=== PATIENT | male | born 1935 | race Caucasian/White ===

== ENCOUNTER 2017-09-17 12:27 | Emergency (ER) | payer OTHER ==
[~2017-09-17 12:27] MED LIST: ASPIRIN CHILDRE81 MG PO; BYSTOLIC10 MG PO; NITROQUICK0.3 MG SL; SIMVASTATIN40 MG PO; SINEMET 25-1001 TAB PO
[2017-09-17] MEDS ORDERED: TAMSULOSIN HCL0.4 M1 PO (12:44)
[2017-09-17] MEDS ORDERED: FLUDROCORTISON0.1 M1 PO (12:44)
[2017-09-17] MEDS ORDERED: AMANTADINE100 M2 PO (12:45)
[2017-09-17] MEDS ORDERED: CARBIDOPA-LEVO1 EAC7 PO (12:45)
[2017-09-17] MEDS ORDERED: SIMVASTATIN40 M1 PO (12:45)
[2017-09-17] MEDS ORDERED: ESCITALOPRAM OX20 MG PO (12:46)
[2017-09-17] MEDS ORDERED: ASPIRIN81 M4 PO (12:47)
[2017-09-17] MEDS ORDERED: MELATONIN3 M4 PO (12:48)
--- NOTE | 2017-09-17 13:42 | ED GI/GU/ABDOMINAL COMPLAINT ---
History of Present Illness General Chief Complaint: General Adult Stated Complaint: CONSTIPATION Source: patient, family, old records Exam Limitations: no limitations Vital Signs & Intake/Output Vital Signs & Intake/Output Vital Signs Date Time Temp Pulse Resp B/P B/P Pulse O2 O2 Flow FiO2 Mean Ox Delivery Rate 09/17 1407 98.3 80 18 161/91 98 Room Air 09/17 1243 97.0 77 28 127/93 96 Room Air Allergies Coded Allergies: NO KNOWN ALLERGIES (10/31/13) Triage Note: PER PT NO BM X 4 DAYS ALSO CO DIFF BREATHING WHEN TRYING TO GO TO [place] SOB IN TRIAGE HX OF PARKINSONS AMBULATION DIFFICULT Triage Nurses Notes Reviewed? yes Onset: 3-4 days Duration: day(s):, constant, continues in ED Timing: recent history Quality/Severity: fullness, moderate Location: generalized abdomen Radiation: no radiation Activities at Onset: rest Prior Abdominal Problems: similar symptoms Past Sexual History: Unobtainable at this time No Modifying Factors: none Associated Symptoms: abdominal pain HPI: 4 days prior to admission patient complains of the last time he moved to stool. He has tried stool softeners without effect. He reports chronic issues with daily passage of stool. He denies fever chills nausea vomiting diarrhea abdominal pain chest pain shortness of breath headache dysuria rash bleeding. (Chuck GOMEZ,Jeovany) Reconcile Medications Amantadine HCl (Amantadine) 100 MG TABLET 1 TAB PO BID UNK (Reported) Aspirin (Aspirin*) 81 MG TAB.CHEW 1 TAB PO DAILY HEART (Reported) Aspirin (Children's Aspirin) 81 MG TAB.CHEW 1 TAB PO DAILY HEART HEALTH Carbidopa/Levodopa (Sinemet) 25 MG/100 MG TAB 1 TAB PO TID PARKINSONS ( Reported) Carbidopa/Levodopa (Carbidopa-Levodopa 25-100 Tab) 25 MG-100 MG TABLET 1 TAB PO TID PARKINSONS (Reported) Escitalopram Oxalate 20 MG TABLET 1 TAB PO DAILY ANXIETY (Reported) Fludrocortisone Acetate 0.1 MG TABLET 1 TAB PO DAILY UNK (Reported) Melatonin 3 MG TABLET 1 TAB PO QPM SLEEP (Reported) Nitroglycerin (Nitroquick) 0.3 MG TAB 1 TAB SL Q6 PRN CHEST PAIN Polyethylene Glycol 3350 (Miralax) 17 GRAM/DOSE POWDER 17 GM PO DAILY constipation mix with water, juice, soda, coffee or tea use until stools soft and regular Simvastatin 40 MG TABLET 1 TAB PO QPM CHOLESTEROL (Reported) Simvastatin (Simvastatin*) 40 MG TABLET 1 TAB PO QPM CHOL (Reported) Tamsulosin HCl 0.4 MG CAP.ER.24H 1 CAP PO DAILY URINE (Reported) (Barbara GOMEZ,Christiano Carranza) Past History Travel History Traveled to [place] past 21 day No Medical History Any Pertinent Medical History? see below for history Neurological: Parkinson's disease EENT: NONE Cardiovascular: HEART CHOL Respiratory: NONE Gastrointestinal: NONE Hepatic: NONE Renal: NONE Musculoskeletal: NONE Psychiatric: NONE Endocrine: NONE History of MRSA: No History of VRE: No History of CDIFF: No Pneumonia Vaccine: 04/08/04 Influenza Vaccine: 01/26/12 Surgical History Surgical History: non-contributory Psychosocial History Who do you live with Spouse Services at Home None What is your primary language Spanish Tobacco Use: Never used Family History Family History, If Any: MOTHER FH: pancreatic cancer FATHER FH: brain tumor Hx Contributory? No (Jeovany Woods MD) Review of Systems Review of Systems Constitutional: Reports: no symptoms. EENTM: Reports: no symptoms. Respiratory: Reports: no symptoms. Cardiovascular: Reports: no symptoms. GI: Reports: see HPI, constipation. Genitourinary: Reports: no symptoms. Musculoskeletal: Reports: no symptoms. Skin: Reports: no symptoms. Neurological/Psychological: Reports: no symptoms. Hematologic/Endocrine: Reports: no symptoms. Immunologic/Allergic: Reports: no symptoms. All Other Systems: Reviewed and Negative (Jeovany Woods MD) Physical Exam Physical Exam General Appearance: well developed/nourished, alert, awake, anxious, mild distress Head: atraumatic, normal appearance Eyes: Bilateral: normal appearance, PERRL, EOMI. Ears, Nose, Throat, Mouth: hearing grossly normal, moist mucous membrane Neck: normal inspection, supple, full range of motion, normal alignment Respiratory: normal breath sounds, chest non-tender, no respiratory distress, quiet respiration, lungs clear Cardiovascular: regular rate/rhythm, normal peripheral pulses, norml femoral pulses equa Peripheral Pulses: 4+ carotid (R), 4+ carotid (L) Gastrointestinal: normal bowel sounds, soft, non-tender, no organomegaly Male Genitals: normal genitalia Back: normal inspection, normal range of motion Extremities: normal range of motion, no ligament instability Neurologic/Psych: no motor/sensory deficits, awake, alert, oriented x 3, normal mood/affect, glass washer and carrier II-XII nml as tested Skin: intact, normal color, warm/dry Core Measures ACS in differential dx? No Sepsis Present: No Sepsis Focused Exam Completed? No (Jeovany Woods MD) Progress Differential Diagnosis: bowel obstruction, pancreatitis, PUD/GERD Diagnostic Imaging: Viewed by Me: Radiology Read. Discussed w/RAD: Radiology Read. Radiology Impression: - No active disease in the chest. - Moderate amount of colonic stool. No evidence of obstruction. Initial ED EKG: normal axis, normal intervals, normal p-waves, normal QRS complex, normal sinus rhythm, no ST T wave changes Prior EKG: unchanged Rhythm Strip: normal sinus rhythm Comments: Unable to tolerate soap suds enema. Cannot retain fluid. (Jeovany Woods MD) Plan of Care: Orders Procedure Date/time Status Enema 09/17 1508 Active Enema 09/17 1432 Complete TROPONIN LEVEL 09/17 1244 Complete COMPREHENSIVE METABOLIC PANEL 09/17 1244 Complete CBC WITHOUT DIFFERENTIAL 09/17 1244 Complete EKG 09/17 1244 Active Current Medications Sig/Sorin Start time Last Medication Dose Stop Time Status Admin Magnesium Citrate 300 ML ONE ONE 09/17 1530 UNVr (Citrate Of Magnesia 09/17 1531 300 Ml) Laboratory Tests 09/17/17 1339: Anion Gap 10, Estimated GFR > 60, BUN/Creatinine Ratio 20.9, Glucose 102 H, Calcium 8.9, Total Bilirubin 0.5, AST 26, ALT 16 L, Alkaline Phosphatase 76, Troponin I < 0.01, Total Protein 6.7, Albumin 3.7, Globulin 3.0, Albumin/ Globulin Ratio 1.2, CBC w Diff NO MAN DIFF REQ, RBC 4.18 L, MCV 92.4, MCH 30.7, MCHC 33.3, RDW 13.4, MPV 8.1, Gran % 79.9 H, Lymphocytes % 11.6 L, Monocytes % 7.0, Eosinophils % 1.3, Basophils % 0.2, Absolute Granulocytes 6.7 H, Absolute Lymphocytes 1.0 L, Absolute Monocytes 0.6, Absolute Eosinophils 0.1, Absolute Basophils 0 Comments: 09/17/2017 3:10:19 PM patient signed out to me by Dr. Woods at [employer]. Patient was not signed out to me by Dr. Woods. Discharged by Dr. Woods himself. (Barbara GOMEZ,Christiano Carranza) Departure Departure Time of Disposition: 1525 Disposition: HOME OR SELF CARE Condition: Stable Clinical Impression Primary Impression: Constipation Referrals: Montse GOMEZ,Kumar Torres (PCP/Family) Departure Forms: Customer Survey General Discharge Information Prescriptions: Current Visit Scripts Polyethylene Glycol 3350 (Miralax) 17 GM PO DAILY #527 GM mix with water, juice, soda, coffee or tea use until stools soft and regular (Chuck GOMEZ,Jeovany)
[2017-09-17 14:05] LABS: ABSOLUTE BASOPHIL COUNT 0 /CUMM (0.0-0.2); ABSOLUTE EOSINOPHIL COUNT 0.1 /CUMM (0.0-0.7); ABSOLUTE GRANULOCYTE CT 6.7 /CUMM (1.4-6.5); ABSOLUTE MONOCYTE COUNT 0.6 /CUMM (0.10-0.60); BASOPHIL % 0.2 % (0.0-2.0); EOSINOPHIL % 1.3 % (0-5); GRANULOCYTE % 79.9 % (42.2-75.2); HEMATOCRIT 38.6 % (42-52); MEAN CORPUSCULAR HGB 30.7 PG (27.0-31.0); MEAN CORPUSCULAR HGB CONC 33.3 G/DL (33.0-37.0); MEAN CORPUSCULAR VOLUME 92.4 FL (80.0-94.0); MEAN PLATELET VOLUME 8.1 FL (7.4-10.4); PLATELET COUNT 170 /CUMM (130-400); RBC DISTRIBUTION WIDTH 13.4 % (11.5-14.5); RED BLOOD CELL CT 4.18 /CUMM (4.70-6.10); WHITE BLOOD CELL COUNT 8.4 /CUMM (4.8-10.8)
--- NOTE | 2017-09-17 14:26 | RADIOLOGY REPORT ---
EXAMINATION: XR ABDOMEN XR CHEST CLINICAL INDICATION: Constipation for 4 days. COMPARISON: CT of the abdomen and pelvis 10/31/2013 and chest radiograph 11/02/2013. TECHNIQUE: 2 views of the abdomen and 2 views of the chest were performed. FINDINGS: Chest: The lungs are grossly clear without consolidation, edema, effusion, or pneumothorax. There is subsegmental atelectasis in the left lower lobe. The cardiomediastinal silhouette appears normal allowing for atheromatous changes in the uncalcified aorta. 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 There are mild degenerative changes in the thoracic spine. Abdomen: There is a nonobstructed bowel gas pattern. No disproportionately dilated loops of small bowel or air-fluid levels are seen. There is moderate amount of colonic stool including within the rectal vault. 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 IMPRESSION: - No active disease in the chest. - Moderate amount of colonic stool. No evidence of obstruction.
[2017-09-17] MEDS ORDERED: MIRALAX119 GM PO (15:27)
[2017-09-17 17:38] VITALS: BP 142/77
== END 2017-09-17 17:39 ==
LOC: ERH 12:27
PROVIDERS: Physician Assistant
DX: K59.00 Constipation, unspecified (principal)
CPT/HCPCS: 71046; 74018; 93005; 93010